=== PATIENT | female | born 1970 | race Caucasian/White ===

== ENCOUNTER 2017-04-20 09:53 | Emergency (ER) | payer MEDICAID, OTHER ==
[2017-04-20 10:14] VITALS: RESP 18; TEMP 98; O2SAT 98
[2017-04-20 10:17] VITALS: BMI 24.1
[2017-04-20] MEDS ORDERED: guaiFENesin 100 mg/5 ml Syrup UD PO STA (10:37)
--- NOTE | 2017-04-20 10:39 | C.PDOC ---
History Of Present Illness 46 y/o female presents to the ED with complaints of dry nonproductive cough, subjective fever and sore throat x4 days. Multiple sick contacts at home with the same. Pt taking OTC flu and cold medicine occasionally. Pt requesting work note for today. Time Seen by Provider: 04/20/17 10:30 Chief Complaint (Nursing): Cough, Cold, Congestion History Per: Patient History/Exam Limitations: no limitations Onset/Duration Of Symptoms: Days Current Symptoms Are (Timing): Still Present Location Of Pain: Throat Associated Symptoms: Fever, Sore Throat, Cough. denies: Sputum Severity: Mild Recent travel outside of the [place]: No Past Medical History Reviewed: Historical Data, Nursing Documentation, Vital Signs Vital Signs: Last Vital Signs Temp 98.0 F 04/20/17 10:14 Pulse 69 04/20/17 10:47 Resp 18 04/20/17 10:47 BP 127/69 04/20/17 10:47 Pulse Ox 98 04/20/17 10:47 - Medical History PMH: HTN, Migraine (childhood), Sleep Apnea (c pap setting 8) Surgical History: Endoscopy - [facility] Procedures CYSTOGRAM NEC (05/31/14) SUPRAPUBIC SLING OP (07/24/14) VAGINOSCOPY (05/31/14) Family History: States: Unknown Family Hx - Social History Hx Alcohol Use: No Hx Substance Use: No - Immunization History Hx Tetanus Toxoid Vaccination: No Hx Influenza Vaccination: Yes Hx Pneumococcal Vaccination: No Review Of Systems Except As Marked, All Systems Reviewed And Found Negative. Constitutional: Positive for: Fever ENT: Positive for: Throat Pain. Negative for: Ear Pain Respiratory: Positive for: Cough. Negative for: Sputum Physical Exam - Physical Exam Appears: Non-toxic, No Acute Distress Skin: Warm, Dry, No Rash Head: Atraumatic, Normacephalic Ear(s): Bilateral: Normal Nose: Normal Oral Mucosa: Moist Throat: Normal, No Erythema, No Exudate Neck: Normal, Normal ROM, Supple Chest: Symmetrical Cardiovascular: Rhythm Regular, No Murmur Respiratory: Normal Breath Sounds, No Rales, No Rhonchi, No Wheezing, Other ( mild dry nonproductive cough) Neurological/Psych: Oriented x3, Normal Speech ED Course And Treatment O2 Sat by Pulse Oximetry: 98 (room air) Pulse Ox Interpretation: Normal Medical Decision Making Medical Decision Making: mild viral syndrome, normal exam work note to return 3 days/ Disposition Doctor Will See Patient In The: Office Counseled Patient/Family Regarding: Studies Performed, Diagnosis - Disposition Referrals: [facility] [Outside] [facility] [employer] [Outside] Disposition: HOME/ ROUTINE Disposition Time: 10:39 Condition: GOOD Additional Instructions: sigue Dayquil y Nyquil luz dirijidos. Instructions: Viral Syndrome (ED) Forms: Work Excuse Print Language: MACEDONIAN - Clinical Impression Clinical Impression: Influenza-like illness - Scribe Statement The provider has reviewed the documentation as recorded by the Krissy Zafar Provider Attestation: All medical record entries made by the Krissy were at my direction and personally dictated by me. I have reviewed the chart and agree that the record accurately reflects my personal performance of the history, physical exam, medical decision making, and the department course for this patient. I have also personally directed, reviewed, and agree with the discharge instructions and disposition.
[2017-04-20] MEDS ORDERED: guaiFENesin 100 mg/5 ml Syrup UD ONE (10:47)
[2017-04-20 10:48] VITALS: BP 127/69; PULSE 69
== END 2017-04-20 11:00 | disposition home or self-care (01) ==
LOC: C.ER 09:53 → SUPCPDRO 09:53 → C.ER 11:00
DX: J11.1 Influenza due to unidentified influenza virus with other respiratory manifestations (principal)